=== PATIENT | female | born 1955 | race Caucasian/White ===

== ENCOUNTER 2019-07-06 21:11 | Emergency (ER) | payer OTHER ==
[2019-07-06 21:42] VITALS: RESP 18
[2019-07-06] MEDS ORDERED: MORPHINE SULFATE 4 MG/ML SYRINGE IVP STA (22:06)
[2019-07-06 22:59] LABS: Basophils % (A) 0 %; Eosinophils # (A) 0.2 k/uL (0-0.7); Eosinophils % (A) 1 %; HCT 29.8 % (34.0-46.0); HGB 9.3 gm/dL (11.4-16.0); Hypochromasia Slight; Lymphocytes # (A) 2.1 k/uL (1.0-4.8); Lymphocytes % (A) 16 %; MCH 29.4 pg (25.0-35.0); MCHC 31.4 g/dL (31.0-37.0); MCV 93.9 fL (80.0-100.0); Monocytes # (A) 0.5 k/uL (0-1.0); Monocytes % (A) 4 %; Neutrophils # (A) 10.3 k/uL (1.3-7.7); Neutrophils % (A) 77 %; Platelet Count 599 k/uL (150-450); RBC 3.18 m/uL (3.80-5.40); RDW 13.7 % (11.5-15.5); WBC 13.5 k/uL (3.8-10.6)
[2019-07-06 23:09] LABS: ALT 11 U/L (9-52); AST 9 U/L (14-36); African American GFR (CKD) >90 (>60 ml/min/1.73 sqM); Albumin 2.8 g/dL (3.5-5.0); Alkaline Phosphatase 151 U/L (38-126); Anion Gap 5 mmol/L; Blood Urea Nitrogen 17 mg/dL (7-17); Calcium 8.5 mg/dL (8.4-10.2); Carbon Dioxide 28 mmol/L (22-30); Chloride 109 mmol/L (98-107); Glucose 98 mg/dL (74-99); Potassium 4.4 mmol/L (3.5-5.1); Sodium 142 mmol/L (137-145); Total Bilirubin 0.1 mg/dL (0.2-1.3); Total Protein 5.9 g/dL (6.3-8.2)
[2019-07-06 23:11] LABS: INR 0.9 (<1.2); Partial Thromboplastin Time 25.1 sec (22.0-30.0); Prothrombin Time 9.5 sec (9.0-12.0)
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
[2019-07-07 00:53] VITALS: BP 123/62; PULSE 69; TEMP 98
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
[2019-07-07 01:02] LABS: Appearance,Urine Clear (Clear); Bilirubin,Urine Negative (Negative); Blood,Urine Negative (Negative); Color,Urine Yellow; Glucose,Urine (UA) Negative (Negative); Ketones,Urine Negative (Negative); Leukocyte Esterase,Urine Trace (Negative); Nitrite,Urine Positive (Negative); PH, Urine 5.5 (5.0-8.0); Protein,Urine Trace (Negative); RBC,Urine 2 /hpf (0-5); Squamous Epithelial Cell,Urine 6 /hpf (0-4); Urobilinogen,Urine <2.0 mg/dL (<2.0)
[2019-07-07 01:37] LABS: Specific Gravity,Urine >1.050 (1.001-1.035)
== END 2019-07-07 01:03 | disposition home or self-care (01) ==
LOC: EC 21:11
DX: D64.9 Anemia, unspecified (principal); R82.998 Other abnormal findings in urine; S39.91XA Unspecified injury of abdomen, initial encounter; E07.9 Disorder of thyroid, unspecified; F32.9 Major depressive disorder, single episode, unspecified; F17.200 Nicotine dependence, unspecified, uncomplicated; Z79.890 Hormone replacement therapy; Z79.899 Other long term (current) drug therapy; Z53.20 Procedure and treatment not carried out because of patient's decision for unspecified reasons; V87.8XXA Person injured in other specified noncollision transport accidents involving motor vehicle (traffic), initial encounter
CPT/HCPCS: 36415; 80053; 85025; 85610; 85730; 81001; 74177; 96374; 99284; J2270; Q9967

== ENCOUNTER 2019-12-05 21:07 | Inpatient (IN) | payer MEDICAID, OTHER ==
--- NOTE | 2019-12-05 22:19 | ED ---
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 The patient had reportedly witnessed a scheduled appointment for her psychiatric treatment. When I interview the patient, she is denying symptoms. She states she is not feeling depressed or suicidal. Denies hallucinations MD Complaint: other (Court ordered psychiatric evaluation) Onset/Timin -: days(s) Associated Psychiatric Symptoms: none Improves With: none Worsens With: none Associated Symptoms: denies other symptoms - Related Data Home Medications Medication Instructions Recorded Confirmed Baclofen [Lioresal] 10 mg PO QID 07/06/19 07/06/19 Citalopram Hydrobromide [CeleXA] 40 mg PO DAILY 07/06/19 07/06/19 Furosemide [Lasix] 10 mg PO DAILY 07/06/19 07/06/19 Levothyroxine Sodium [Synthroid] 150 mcg PO DAILY 07/06/19 07/06/19 Previous Rx's Medication Instructions Recorded Hydrocodone/Acetaminophen [[place] 1 tab PO Q6HR PRN #12 tab 07/07/19 5-325] Allergies Allergy/AdvReac Type Severity Reaction Status Date / Time No Known Allergies Allergy Verified 12/05/19 21:14 Review of Systems ROS Statement: Those systems with pertinent positive or pertinent negative responses have been documented in the HPI. ROS Other: All systems not noted in ROS Statement are negative. Constitutional: Denies: fever, chills Respiratory: Denies: cough, dyspnea Cardiovascular: Denies: chest pain, palpitations Gastrointestinal: Denies: abdominal pain, nausea, vomiting Genitourinary: Denies: dysuria Musculoskeletal: Denies: back pain Skin: Denies: rash Neurological: Denies: headache Psychiatric: Denies: depression, auditory hallucinations, homicidal thoughts, suicidal thoughts Past Medical History Past Medical History: Thyroid Disorder History of Any Multi-Drug Resistant Organisms: None Reported Past Surgical History: Section Past Psychological History: Depression Smoking Status: Current every day smoker Past Alcohol Use History: None Reported Past Drug Use History: Marijuana General Exam Limitations: no limitations General appearance: alert, in no apparent distress Head exam: Present: atraumatic, normocephalic Respiratory exam: Present: normal lung sounds bilaterally. Absent: respiratory distress, wheezes, rales, rhonchi, stridor Cardiovascular Exam: Present: regular rate, normal rhythm, normal heart sounds. Absent: systolic murmur, diastolic murmur, rubs, gallop GI/Abdominal exam: Present: soft. Absent: tenderness Neurological exam: Present: alert, normal gait Psychiatric exam: Present: normal affect, normal mood. Absent: anxious, flat affect, manic, homicidal ideation, suicidal ideation Skin exam: Present: warm, dry, intact, normal color. Absent: rash Course Vital Signs 12/05/19 21:12 Temperature 98.0 F Pulse Rate 91 Respiratory 18 Rate Blood Pressure 103/68 O2 Sat by Pulse 97 Oximetry Disposition Referrals: Cameron Rothman MD [Primary Care Provider] - 1-2 days
[2019-12-06] MEDS ORDERED: ZIPRASIDONE 20 MG VIAL IM PRN (04:19)
[2019-12-06] MEDS ORDERED: MAG HYDROX/AL HYDROX/SIMETH 30 ML CUP PO PRN (04:19)
[2019-12-06] MEDS ORDERED: MAGNESIUM HYDROXIDE 2,400 MG/10 ML CUP PO PRN (04:19)
[2019-12-06 11:25] LABS: Basophils % (A) 0 %; Eosinophils # (A) 0.1 k/uL (0-0.7); Eosinophils % (A) 1 %; HCT 37.9 % (34.0-46.0); HGB 11.8 gm/dL (11.4-16.0); Lymphocytes # (A) 2.1 k/uL (1.0-4.8); Lymphocytes % (A) 23 %; MCH 29.2 pg (25.0-35.0); MCHC 31.3 g/dL (31.0-37.0); MCV 93.3 fL (80.0-100.0); Monocytes # (A) 0.3 k/uL (0-1.0); Monocytes % (A) 4 %; Neutrophils # (A) 6.2 k/uL (1.3-7.7); Neutrophils % (A) 70 %; Platelet Count 288 k/uL (150-450); RBC 4.06 m/uL (3.80-5.40); RDW 14.5 % (11.5-15.5); WBC 8.9 k/uL (3.8-10.6)
[2019-12-06 12:22] LABS: ALT 6 U/L (4-34); AST 14 U/L (14-36); African American GFR (CKD) >90 (>60 ml/min/1.73 sqM); Albumin 3.7 g/dL (3.5-5.0); Alkaline Phosphatase 80 U/L (38-126); Anion Gap 3 mmol/L; Blood Urea Nitrogen 13 mg/dL (7-17); Calcium 8.9 mg/dL (8.4-10.2); Carbon Dioxide 31 mmol/L (22-30); Chloride 107 mmol/L (98-107); Glucose 94 mg/dL (74-99); Non-African American GFR(CKD) >90 (>60 ml/min/1.73 sqM); Potassium 3.9 mmol/L (3.5-5.1); Sodium 141 mmol/L (137-145); Total Bilirubin 0.1 mg/dL (0.2-1.3); Total Protein 6.5 g/dL (6.3-8.2)
[2019-12-06 12:50] LABS: Bilirubin,Unconjugated 0.3 mg/dL (0.0-1.1); Cholesterol 179 mg/dL (<200); HDL Cholesterol 36 mg/dL (40-60); LDL Cholesterol,Calculated 119 mg/dL (0-99); Triglycerides 122 mg/dL (<150)
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
[2019-12-06] MEDS: ACETAMINOPHEN TAB 325 MG TAB PO PRN (19:10)
[2019-12-06 20:07] LABS: Hemoglobin A1C 5.8 % (4.0-6.0)
--- NOTE | 2019-12-06 20:19 | P.CONS ---
History of Present Illness - Reason for Consult Consult date: 12/06/19 medical management Requesting physician: Juan Luis Maldonado - Chief Complaint patient was petitioned - History of Present Illness Consultation: This is a 64-year-old patient of Dr. carlin from [place]. Patient scored chronic stable medical conditions include hypothyroid, depression. Patient is a smoker and also does marijuana. Patient is not sure why she is here. She was petitioned by her daughter. Did admitted for further evaluation. She was brought in by the police. Patient states that her daughter claimed that she wanted to jump from. The sixth floor. Patient denies any overt depression. Sometimes she forgets to take her medications. Does smoke cigarettes. Breathing is okay. Occasional wheezing. Appetite is fair. Sleeping is okay. Doesn't feel any animosity against anyone. Denies hearing voices or seeing things. Admitted to the psychiatry unit. Review of systems: GEN.: A bit tired EYES: None HEENT: None NECK: None RESPIRATORY: Occasional wheezing or cough CARDIOVASCULAR: None GASTROINTESTINAL: None GENITOURINARY: None MUSCULOSKELETAL: None LYMPHATICS: None HEMATOLOGICAL: None PSYCHIATRY: Slightly depressed NEUROLOGICAL: None Past medical history to include: Depression, hypothyroid Social history: Smokes half a pack a day. Lives alone. Daughter lives nearby with the family. Denies alcohol or recreational drugs. Family history: Reviewed, noncontributory to presentation Physical examination: VITAL SIGNS: 98, 91, 18, the patient 103/68, 97% on room air GENERAL: BMI 24.1, sitting up, comfortable. EYES: Pupils equal. Conjunctiva normal. HEENT: External appearance of nose and ears normal, oral cavity grossly normal. NECK: JVD not raised; masses not palpable. HEART: First and second heart sounds are normal; no edema. LUNGS: Respiratory rate normal; decreased breath sounds. ABDOMEN: Soft, nontender, liver spleen not palpable, no masses palpable. PSYCH: Alert and oriented x3; mood and affect normal. NEUROLOGICAL: Cranial nerves grossly intact; no facial asymmetry, power and sensation grossly intact. LYMPHATICS: No lymph nodes palpable in the axilla and neck INVESTIGATIONS, reviewed in the clinical context: White count 8.9 hemoglobin 11.8 platelets 288 potassium 3.8 creatinine 0.67 LDL 119 TSH 37.3 Assessment: -COPD in a current smoker -Chronic nicotine dependence patient cigarette smoker -Hypothyroid, uncontrolled for not taking her medications Plan: Patient advised against smoking. We'll start a nicotine patch. On the 20 bronchodilators currently. Patient actively asymptomatic. We'll start the patient on Synthroid 100 g a day. Patient should've a repeat TSH checked in about 4 weeks. Patient should follow with PCP upon discharge. Thank you Dr. Maldonado Past Medical History Past Medical History: Thyroid Disorder History of Any Multi-Drug Resistant Organisms: None Reported Past Surgical History: Section Past Psychological History: Depression Smoking Status: Current every day smoker Past Alcohol Use History: None Reported Past Drug Use History: Marijuana Medications and Allergies Home Medications Medication Instructions Recorded Confirmed Type Baclofen [Lioresal] 10 mg PO Q4H PRN 07/06/19 12/06/19 History Levothyroxine Sodium [Synthroid] 150 mcg PO DAILY 07/06/19 12/06/19 History Hydrocodone/Acetaminophen [[place]da 1 tab PO Q6HR PRN #12 tab 07/07/19 12/06/19 Rx 5-325] Ergocalciferol [Vitamin D2] 50,000 unit PO Q7D 12/06/19 12/06/19 History Venlafaxine HCl [Effexor XR] 75 mg PO DAILY 12/06/19 12/06/19 History Allergies Allergy/AdvReac Type Severity Reaction Status Date / Time No Known Allergies Allergy Verified 12/05/19 21:14 Physical Exam Vitals: Vital Signs Temp Pulse Pulse Resp BP Pulse Ox 12/06/19 05:37 97.1 F L 66 16 95 12/05/19 21:12 98.0 F 91 18 103/68 97 Intake and Output 12/05/19 12/06/19 12/06/19 22:59 06:59 14:59 Other: Weight 61.235 kg 61.689 kg Results CBC & Chem 7: 12/06/19 10:50 12/06/19 10:50
[2019-12-06] MEDS: LEVOTHYROXINE 100 MCG TAB PO SCH (21:13)
[2019-12-06] MEDS: NICOTINE 21MG/24HR PATCH TRANSDERM SCH (21:13)
[2019-12-07] MEDS: LEVOTHYROXINE 100 MCG TAB PO SCH (06:09)
[2019-12-07] MEDS: NICOTINE 21MG/24HR PATCH TRANSDERM SCH (09:28)
[2019-12-07] MEDS: ACETAMINOPHEN TAB 325 MG TAB PO PRN ×2 (09:28→17:35)
[2019-12-07] MEDS: LORazepam 1 MG TAB PO PRN ×2 (09:28→17:35)
[2019-12-07] MEDS: ARIPiprazole 2 MG TAB PO SCH (12:58)
--- NOTE | 2019-12-07 14:06 | P.PN ---
Subjective Progress Note Date: 12/07/19 Principal diagnosis: Unspecified psychotic disorder, rule out periods of delirium, rule out early dementia, rule out mood disorder, I reviewed the medical record, interviewed the patient and discussed her treatment and treatment plan during team meeting. She denied current concerns other than not being discharged today. She denied feeling depressed or having persistent uncontrollable anxiety. She denied feeling paranoid or suspicious. She denied having auditory or visual hallucinations. We again reviewed her history. She denies use of alcohol or drugs with the exception of marijuana. She denied history of seizure or seizure-like activity. Medical consult appreciated. Objective - Vital Signs Vital signs: Vital Signs Temp 98.0 F 12/07/19 06:42 Pulse 73 12/07/19 06:42 Resp 15 12/07/19 06:42 BP 130/65 12/07/19 06:42 Pulse Ox 97 12/07/19 06:42 - Exam She presented as casually groomed 64-year-old female who looked older than his stated age. She made eye contact and attended to the interview. She was oriented to person, place and time. She had no abnormality of psychomotor activity. She showed no abnormal movements. Her speech was spontaneous with decreased rate and rhythm. Affect was blunted but stable and appropriate. She denied suicidal ideation, wishes or homicidal ideation. She did not express ideas reference, paranoid ideation or delusional thoughts. She denied hallucinations did not appear to be responding to internal stimuli. - Labs CBC & Chem 7: 12/06/19 10:50 12/06/19 10:50 Labs: Abnormal Lab Results - Last 24 Hours (Table) 12/06/19 Range/Units 10:50 Free T4 0.49 L (0.78-2.19) ng/dL Assessment and Plan Assessment: There is no evidence of psychosis, severe depression or cognitive impairment. Plan: In a trial of Abilify 1 mg daily and titrated according to clinical response and tolerance. Consult neurology regarding history of episodic impairments of cognition.
--- NOTE | 2019-12-07 22:59 | P.CNNES ---
History of Present Illness Consult date: 12/07/19 Requesting physician: Juan Luis Maldonado Reason for Consult: Unusual psychiatric presentation, brief episodic symptoms with recovery History of Present Illness: Patient is a 64-year-old female, who came to the hospital because of altered mental status. Patient was referred for Court ordered psychiatric evaluation. Patient's daughter completed repetition, that read "Hallucinations, delusions, paranoia, aggressiveness, not attending to basic needs like eating, showering, misplacing items, fearful, obsessive thinking, extremely anxious. Hallucinating, stating will jump from a 12 foot balcony". Patient was seen in the psychiatric unit. Patient appeared very comfortable at this time, able to provide appropriate history. Patient states that she started becoming confused, started seeing people who were not there, about 2 weeks ago and ended up in the hospital. Patient denies any loss of consciousness, any sei zure-like activity, or any strokelike symptoms. Patient says that she may be was slightly depressed, as she is home alone. She started talking to her son, who was not there. She states that perhaps she was hoping her son was actually there. These symptoms escalated and she started seeing strangers in the house. Last week, she thought her sister was at her house. She started seeing her sister talking to her daughter, who were not there. Because of these hallucinations, patient was brought to the hospital. Patient states that she has these incidents in the past, but were not as bad as this time. Patient denies headache, slurred speech, facial droop, numbness tingling or weakness, or any loss of consciousness. On review of records from psychiatric evaluation, it was reported by patient's daughter, she that she has been unwell for last 1 year, worse over the last 6 months. Patient's daughter has mentioned, that she believes that approximately every 6 weeks, she becomes unwell, she becomes frightened, scared and anxious. She develops auditory and visual hallucinations. Patient's TSH is elevated at 37.3, free T4 is low 0.49, total cholesterol 179, LDL 119, HDL 36 and triglycerides 122. Liver panel is normal, hemoglobin A1c 5.8. Patient has smoked half pack per day for 30 years. Denies any alcohol or drugs. Does use marijuana occasionally. Review of Systems As above in detail. Denies focal symptoms. Past Medical History Past Medical History: Thyroid Disorder History of Any Multi-Drug Resistant Organisms: None Reported Past Surgical History: Section Past Psychological History: Depression Smoking Status: Current every day smoker Past Alcohol Use History: None Reported Past Drug Use History: Marijuana Medications and Allergies Home Medications Medication Instructions Recorded Confirmed Type Baclofen [Lioresal] 10 mg PO Q4H PRN 07/06/19 12/06/19 History Levothyroxine Sodium [Synthroid] 150 mcg PO DAILY 07/06/19 12/06/19 History Hydrocodone/Acetaminophen [Gabbs 1 tab PO Q6HR PRN #12 tab 07/07/19 12/06/19 Rx 5-325] Ergocalciferol [Vitamin D2] 50,000 unit PO Q7D 12/06/19 12/06/19 History Venlafaxine HCl [Effexor XR] 75 mg PO DAILY 12/06/19 12/06/19 History Allergies Allergy/AdvReac Type Severity Reaction Status Date / Time No Known Allergies Allergy Verified 12/05/19 21:14 Physical Examination - Vital Signs Vital Signs: Vital Signs Temp Pulse Resp BP Pulse Ox 12/07/19 06:42 98.0 F 73 15 130/65 97 On examination patient is an elderly female, in no distress. Patient is alert and awake, fully oriented. She knows it is 12/07/2019 and Mr. White is the president. She knows that she is in [facility] in [facility] in [facility]. She states she has 4 kids, 2 boys and 2 girls, and lives by herself. Her speech and language functions are normal. Attention and concentration fund of knowledge appears intact. Patient does have some visuospatial apraxia. Palmomental reflex was absent. Clock drawing test was perfect. On cranial nerve examination, pupils are round and reacting to light, visual ryan are full on confrontation, extraocular muscles are intact with no nystagmus. Face is symmetric, tongue protrudes the midline. Palatal elevation and sensation normal. On muscle strength testing there is no pronator drift and the strength is normal in arms and legs distally and proximally. Reflexes are 1+ and plantars are withdrawal bilaterally. Sensory to touch is equal. No ataxia for [id number] testing. Tone and bulk of muscles normal. Gait appears normal. There is no carotid bruit or murmur. Peripheral pulses are present. Results - Laboratory Findings CBC and BMP: 12/06/19 10:50 12/06/19 10:50 Abnormal Lab Findings: Abnormal Labs 12/06/19 12/06/19 10:50 10:50 Carbon Dioxide 31 H Total Bilirubin 0.1 L LDL Cholesterol, Calc 119 H HDL Cholesterol 36 L TSH 37.300 H Free T4 0.49 L Assessment and Plan Assessment: * 64-year-old female with recurrent episodes of delirium, associated with hallucinations, delusions and aggressive behavior. At present patient appears to have normal mentation as mentioned above. Patient performed fairly well on limited cognitive function testing, although she does have some degree of visuospatial apraxia. Uncertain if patient has affective disorder presenting with recurrent delirium, or perhaps an early stage of dementia. * Hypothyroidism Plan: * Suggest appropriate treatment of hypothyroidism. * I will check B12, folate, RPR. * Also suggest neuropsychological testing to evaluate for mild cognitive impairment versus early stage of dementia. * If detailed neuropsychological testing abnormal, then may benefit from treatment with Aricept. * Please call neurology if any further concerns.
[2019-12-08] MEDS: LEVOTHYROXINE 100 MCG TAB PO SCH (06:21)
[2019-12-08] MEDS: ACETAMINOPHEN TAB 325 MG TAB PO PRN ×2 (06:22→12:21)
[2019-12-08] MEDS: LORazepam 1 MG TAB PO PRN ×2 (06:22→20:56)
[2019-12-08] MEDS: NICOTINE 21MG/24HR PATCH TRANSDERM SCH ×2 (09:53→09:58)
[2019-12-08] MEDS: ARIPiprazole 2 MG TAB PO SCH (09:53)
[2019-12-08 11:31] LABS: Folate, Serum 14.5 ng/mL
[2019-12-08] MEDS: BACLOFEN 10 MG TAB PO PRN ×3 (12:21→20:56)
--- NOTE | 2019-12-08 14:41 | P.PN ---
Progress Note - Text Progress Note Date: 12/08/19 Interval history: Patient was seen in her room and was directable and agreeable to speak with sylvie sal. Patient appeared to be disheveled this morning and states that she was staying in her room most of the day due to feeling bored. She states that she is continuing to struggle with anxiety and states that it is "very severe". Patient asked to have another medication for anxiety and was agreeable to take BuSpar. She states that she is trying to go to some of the groups and participate as best as she can. She states that she is eating well. She states that she slept fairly last night throughout the night. At this time patient denies any suicidal or homicidal ideations intent or plan. Denies any Auditory or visual hallucinations. Patient denies any side effects from the medications and has been compliant with meds. Mental status exam: General Appearance: Patient appears to be older than stated age is alert, directable, and cooperative. Poor hygiene and grooming. Behavior: No agitated behavior. Patient is calm and directable, appears anxious. Speech: Patient's speech is fluent and nonpressured. Mood/Affect: Mood is improving mildly, affect is congruent and anxious. Suicidality/Homicidality: Patient denies having any suicidal or homicidal ideation intent or plan. Perceptions: Patient denies any auditory or visual hallucinations. Though content/process: There is no evidence of any delusional thought content and thought process is linear and goal-directed. Preoccupied with anxiety. Memory and concentration: AOX3, grossly intact for the purposes of this session Judgment and insight: improving mildly Assessment/Plan: Continue with current diagnosis. Patient continues to meet criteria for inpatient psychiatric admission for symptom stabilization and safety.Patient will be maintained on current psychotropic medication regimen, with the exception of starting BuSpar 7.5 mg twice a day for anxiety. Monitor for medication compliance and for any psychotropic medication side effects. Will continue to monitor ongoing response to treatment. Encouraged participation in milieu.
[2019-12-08] MEDS: busPIRone HCl 5 MG TAB PO SCH ×2 (14:43→20:56)
[2019-12-09] MEDS: ACETAMINOPHEN TAB 325 MG TAB PO PRN ×4 (02:05→20:23)
[2019-12-09] MEDS: BACLOFEN 10 MG TAB PO PRN ×4 (02:05→20:23)
[2019-12-09] MEDS: LEVOTHYROXINE 100 MCG TAB PO SCH (06:42)
[2019-12-09] MEDS: ARIPiprazole 2 MG TAB PO SCH (08:45)
[2019-12-09] MEDS: busPIRone HCl 5 MG TAB PO SCH (08:46)
[2019-12-09] MEDS: NICOTINE 21MG/24HR PATCH TRANSDERM SCH (08:48)
[2019-12-09] MEDS: LORazepam 1 MG TAB PO PRN (08:49)
--- NOTE | 2019-12-09 11:19 | P.PN ---
Progress Note - Text Progress Note Date: 12/09/19 Interval history: Patient was seen in her room and was directable and agreeable to speak with sylvie sal. Patient appeared to be disheveled this morning however was calm and cooperative with account underwriter during the conversation. Patient was appropriate. She states that her anxiety is doing "better" with the BuSpar and requested to have it increased to 10 mg twice a day. She states that she slept through the night and offers no complaints. She states that she is trying to go to some of the groups and participate as best as she can. Patient was focused on discharge. She states that she is eating well. At this time patient denies any suicidal or homicidal ideations intent or plan. Denies any Auditory or visual hallucinations. Patient denies any side effects from the medications and has been compliant with meds. Mental status exam: General Appearance: Patient appears to be older than stated age is alert, directable, and cooperative. Poor hygiene and grooming. Behavior: No agitated behavior. Patient is calm and directable, appears less anxious. Speech: Patient's speech is fluent and nonpressured. Mood/Affect: Mood is improving mildly, affect is congruent Suicidality/Homicidality: Patient denies having any suicidal or homicidal ideation intent or plan. Perceptions: Patient denies any auditory or visual hallucinations. Though content/process: There is no evidence of any delusional thought content and thought process is linear and goal-directed. Memory and concentration: AOX3, grossly intact for the purposes of this session Judgment and insight: improving mildly Assessment/Plan: Continue with current diagnosis. Patient continues to meet criteria for inpatient psychiatric admission for symptom stabilization and safety.Patient will be maintained on current psychotropic medication regimen, with the exception of increasing BuSpar 10 mg twice a day for anxiety. Monitor for medication compliance and for any psychotropic medication side effects. Will continue to monitor ongoing response to treatment. Encouraged participation in milieu.
[2019-12-09] MEDS: busPIRone HCl 10 MG TAB PO SCH (20:22)
[2019-12-10] MEDS: BACLOFEN 10 MG TAB PO PRN ×4 (03:01→20:54)
[2019-12-10] MEDS: ACETAMINOPHEN TAB 325 MG TAB PO PRN ×2 (03:01→08:58)
[2019-12-10] MEDS: LEVOTHYROXINE 100 MCG TAB PO SCH (06:41)
[2019-12-10] MEDS: NICOTINE 21MG/24HR PATCH TRANSDERM SCH (08:56)
[2019-12-10] MEDS: ARIPiprazole 2 MG TAB PO SCH (08:57)
[2019-12-10] MEDS: busPIRone HCl 10 MG TAB PO SCH ×2 (08:57→20:53)
--- NOTE | 2019-12-10 13:48 | P.PN ---
Subjective Progress Note Date: 12/10/19 Principal diagnosis: Unspecified psychotic disorder, rule out periods of delirium, rule out early dementia, rule out mood disorder, I reviewed the medical record, interviewed the patient and discussed her treatment and treatment plan during team meeting. The covering psychiatrist started BuSpar and titrated dose of 10 mg twice a day over the weekend. She requested discharge. She denied problems or concerns. She denied feeling anxious, restless or fearful. She denied experiencing such psychotic symptoms as hallucinations, delusions or thought disturbances. Neurology consult completed because of lack of availability of her neurologist. Objective - Vital Signs Vital signs: Vital Signs Temp 98.1 F 12/10/19 03:24 Pulse 70 12/10/19 03:24 Resp 18 12/10/19 03:24 BP 124/59 12/10/19 03:24 Pulse Ox 98 12/10/19 03:24 - Exam She presented as casually groomed 64-year-old female who looked older than his stated age. She made eye contact and attended to the interview. She was oriented to person, place and time. She had no abnormality of psychomotor activity. She showed no abnormal movements. Her speech was spontaneous with decreased rate and rhythm. Affect was stable and appropriate. She denied suicidal ideation, wishes or homicidal ideation. She did not express ideas reference, paranoid ideation or delusional thoughts. She denied hallucinations did not appear to be responding to internal stimuli. - Labs CBC & Chem 7: 12/06/19 10:50 12/06/19 10:50 Assessment and Plan Assessment: There is no evidence of psychosis, severe depression or cognitive impairment. She appears to have fully recovered from the psychotic episode that developed on the weekend prior to admission. Plan: Continue Abilify 1 mg daily and titrated according to clinical response and tolerance. Continue BuSpar 10 mg by mouth twice a day. Discharge home following a family meeting. [employer] worker to coordinate the family meeting as well as aftercare services.
[2019-12-10] MEDS: LORazepam 1 MG TAB PO PRN ×2 (14:56→23:14)
[2019-12-11] MEDS: LEVOTHYROXINE 100 MCG TAB PO SCH (06:16)
[2019-12-11 06:22] VITALS: BP 113/79; PULSE 67; RESP 16; TEMP 98
[2019-12-11] MEDS: ACETAMINOPHEN TAB 325 MG TAB PO PRN ×2 (08:10→12:51)
[2019-12-11] MEDS: busPIRone HCl 10 MG TAB PO SCH (08:11)
[2019-12-11] MEDS: ARIPiprazole 2 MG TAB PO SCH (08:11)
[2019-12-11] MEDS: BACLOFEN 10 MG TAB PO PRN ×2 (08:12→12:51)
[2019-12-11] MEDS: NICOTINE 21MG/24HR PATCH TRANSDERM SCH (08:14)
[2019-12-11] MEDS: LORazepam 1 MG TAB PO PRN (12:51)
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
== END 2019-12-11 14:12 | disposition home or self-care (01) | DRG 897 ==
LOC: EC 21:07 → 3MHU 12-06 04:18
PROVIDERS: ADMIT Psychiatry & Neurology Psychiatry; ATTEND Psychiatry & Neurology Psychiatry
DX: F12.921 Cannabis use, unspecified with intoxication delirium (principal); F11.90 Opioid use, unspecified, uncomplicated; F19.121 Other psychoactive substance abuse with intoxication delirium; E03.9 Hypothyroidism, unspecified; F17.210 Nicotine dependence, cigarettes, uncomplicated; F32.9 Major depressive disorder, single episode, unspecified; F41.9 Anxiety disorder, unspecified; J44.9 Chronic obstructive pulmonary disease, unspecified; F12.90 Cannabis use, unspecified, uncomplicated; Z79.890 Hormone replacement therapy; Z79.899 Other long term (current) drug therapy; Z91.5 Personal history of self-harm; Z91.19 Patient's noncompliance with other medical treatment and regimen
CPT/HCPCS: 80053; 80061; 82075; 82248; 82607; 82746; 83036; 84439; 84443; 85025; 86780; 99284